=== PATIENT | male | born 1990 | race Caucasian/White ===

== ENCOUNTER 2019-08-20 10:20 | Emergency (ER) | payer OTHER ==
[~2019-08-20] VITALS: Ht 175.3 cm; Wt 71.9 kg
[2019-08-20] MEDS ORDERED: NS 1,000 ML IV ONE (10:45)
[2019-08-20] MEDS ORDERED: MORPHINE 4 MG/ML 1ML VIAL/SYRINGE (J2270) IV ONE ×2 (10:45→13:30)
[2019-08-20 11:20] LABS: BASO # 0.1 10^3/uL (0.0-0.2); BASO % 0.5 % (0.0-1.0); EOS # 0.2 10^3/uL (0.0-0.5); HEMATOCRIT 39.1 % (42.0-52.0); HEMOGLOBIN 13.4 g/dl (13.5-17.5); LYMPH # 1.5 10^3/uL (1.5-5.0); LYMPH % 16.5 % (24.0-44.0); MEAN CORPUSCULAR HEMOGLOBIN 29.3 pg (27.0-33.0); MEAN CORPUSCULAR HGB CONC 34.3 g/dl (32.0-36.5); MEAN CORPUSCULAR VOLUME 85.6 fl (80.0-96.0); MONO # 0.5 10^3/uL (0.0-0.8); MONO % 5.9 % (0.0-5.0); NEUTROPHILS # 6.8 10^3/uL (1.5-8.5); NEUTROPHILS % 74.9 % (36.0-66.0); PLATELET COUNT, AUTOMATED 224 10^3/uL (150-450); RED BLOOD COUNT 4.57 10^6/uL (4.30-6.10); WHITE BLOOD COUNT 9.1 10^3/uL (4.0-10.0)
[2019-08-20] MEDS ORDERED: READI-CAT 2 PO SCH (11:30)
[2019-08-20 12:04] LABS: CALCIUM LEVEL 8.4 MG/DL (8.5-10.1); CREATININE FOR GFR 1.65 MG/DL (0.70-1.30); GLOMERULAR FILTRATION RATE 52.8 (>60); POTASSIUM SERUM 5.2 MEQ/L (3.5-5.1)
[2019-08-20] MEDS ORDERED: LANTINJ4 SC (12:39)
[2019-08-20] MEDS ORDERED: INSUH10VL SC (12:39)
[2019-08-20 13:00] LABS: HEMOGLOBIN A1c 13.3 %
--- NOTE | 2019-08-20 13:19 | REP ---
Clinical: Evaluate for perirectal abscess. Technique: Axial noncontrast images from the lung bases to the pubic symphysis using oral contrast material with coronal and sagittal re-formations. Findings: Evaluation of the perirectal/gluteal region demonstrates no obvious acute process and no obvious mass, abscess or abnormal fluid collection. Liver, spleen, pancreas, gallbladder, bilateral adrenal glands and kidneys are grossly normal for noncontrast evaluation. The enteric system is without obvious obstruction or acute inflammatory process. Pelvis demonstrates distended bladder likely transient in nature and normal prostate/seminal vesicles. No ascites. No free air. No obvious adenopathy. Abdominal aorta without aneurysm. Surrounding musculoskeletal structures are intact. Lung bases are clear. Visualized heart and pericardium normal. Impression: 1. Essentially normal noncontrast CT of the abdomen and pelvis. 2. No obvious perirectal abnormality. Electronically Signed by Kevan Kessler MD 08/20/2019 01:11 P
[2019-08-20 13:31] LABS: VENOUS BASE EXCESS -1.5 (-2.0-2.0); VENOUS HCO3 23.9 MEQ/L (23.0-27.0); VENOUS O2 SATURATION 97.1 % (60.0-80.0); VENOUS PARTIAL PRESSURE CO2 42.7 mmHg (38.0-50.0); VENOUS PARTIAL PRESSURE O2 95.1 mmHg (30.0-50.0); VENOUS PH 7.365 UNITS (7.330-7.430); VENOUS STANDARD HCO3 23.2 MEQ/L; VENOUS TOTAL CO2 25.2 MEQ/L (24.0-28.0)
[2019-08-20] MEDS ORDERED: MIRA3350 PO (13:52)
[2019-08-20] MEDS ORDERED: ANUS2.5C2 PR (13:52)
[2019-08-20 13:58] VITALS: BP 156/97
== END 2019-08-20 14:08 | disposition home or self-care (01) ==
LOC: M ED 10:20
DX: K62.89 Other specified diseases of anus and rectum (principal); E11.65 Type 2 diabetes mellitus with hyperglycemia; Z79.4 Long term (current) use of insulin; F17.210 Nicotine dependence, cigarettes, uncomplicated
CPT/HCPCS: 36415; 74176; 80048; 82803; 83036; 83605; 85025; 96361; 96374; 96376; 99284; J2270